=== PATIENT | female | born 1995 | race American Indian/Alaskan Native ===

== ENCOUNTER 2017-12-14 14:20 | Emergency (ER) | payer SELFPAY ==
[2017-12-14 15:15] LABS: Bacteria,Urine 1+ /HPF (Negative); Bilirubin,Urine NEG (Negative); Blood,Urine LG (Negative); Color,Urine Yellow (Yellow); Mucus,Urine 1+ /HPF; Protein,Urine <15 mg/dL mg/dL (Negative)
[2017-12-14 15:17] LABS: HCG Qualitative,Urine Negative (Negative)
[2017-12-14 15:18] LABS: Basophils % (Auto) 0.4 % (0.0-1.8); Eosinophils # (Auto) 0.2 K/mm3 (0.0-0.4); Eosinophils % (Auto) 1.8 % (0.0-4.3); Hematocrit 42.6 % (30.3-42.9); Hemoglobin 14.1 gm/dl (10.1-14.3); Lymphocytes # (Auto) 1.2 K/mm3 (1.2-5.4); Lymphocytes % (Auto) 13.3 % (13.4-35.0); Mean Corpuscular HGB Conc 33 % (30-34); Mean Corpuscular Hemoglobin 30 pg (28-32); Mean Corpuscular Volume 90 fl (79-97); Monocytes # (Auto) 1.1 K/mm3 (0.0-0.8); Monocytes % (Auto) 12.9 % (0.0-7.3); Platelet Count 252 K/mm3 (140-440); Red Blood Count 4.75 M/mm3 (3.65-5.03); Red Cell Distribution Width 13.3 % (13.2-15.2)
[2017-12-14 15:25] LABS: Alanine Aminotransferase 10 units/L (7-56); Albumin 4.2 g/dL (3.9-5); BUN/Creatinine Ratio 15; Blood Urea Nitrogen 12 mg/dL (7-17); Calcium 9.4 mg/dL (8.4-10.2); Hemolysis Index 5
[2017-12-14] MEDS ORDERED: NACL 0.9% 1000 ML 1,000 ML IV ONE (16:54)
[2017-12-14] MEDS ORDERED: ZOFRAN IV ONE ×2 (16:54→19:23)
[2017-12-14] MEDS ORDERED: NORCO 5/325 PO ONE (16:54)
--- NOTE | 2017-12-14 16:56 | Emergency Department Report ---
Chief Complaint: Nausea/Vomiting/Diarrhea Stated Complaint: NAUSEA/VOMITING Time Seen by Provider: 12/14/17 16:47 - HPI History of Present Illness: 22-year-old female presents to the emergency department with a complaint of a 2 to three-day history of right lower quadrant abdominal pain with some nausea and vomiting. She denies any vaginal bleeding, dysuria, vaginal discharge. She has not taken anything for her symptoms prior presentation. She has a history of diabetes. She feels like she cannot "keep my self hydrated." No recent travel or sick contacts at home. - ROS Review of Systems: Positive for nausea, vomiting and abdominal pain Negative for vaginal bleeding or discharge, dysuria, fever - Exam Vital Signs: Vital Signs 12/14/17 14:28 Temperature 98.3 F Pulse Rate 108 H Respiratory 16 Rate Blood Pressure 114/75 O2 Sat by Pulse 100 Oximetry Physical Exam: Heart and lungs sounds are normal to auscultation. Normal bowel sounds. She has reproducible tenderness to palpation to the right lower quadrant of the abdomen but no guarding. MSE screening note: Focused history and physical exam performed. Due to findings the following was ordered: The patient's labs thus far been unremarkable including a normal CBC, CMP, urinalysis and the patient is not . She will have a 2 view x-ray. We will place an IV and she will receive IV fluid, Zofran and something for discomfort. ED Medical Decision Making - Lab Data Result diagrams: 12/14/17 14:55 12/14/17 14:55 ED Disposition for MSE Condition: Stable Referrals: PRIMARY CARE [Primary Care Provider] - 3-5 Days
--- NOTE | 2017-12-14 17:01 | Emergency Department Report ---
ED Abdominal Pain HPI - General Chief Complaint: Nausea/Vomiting/Diarrhea Stated Complaint: NAUSEA/VOMITING Time Seen by Provider: 12/14/17 16:47 Source: patient, family Mode of arrival: Ambulatory Limitations: No Limitations - History of Present Illness Initial Comments: 22-year-old female presents to the emergency department with a complaint of a 2 to three-day history of right lower quadrant abdominal pain with some nausea and vomiting. She denies any vaginal bleeding, dysuria, vaginal discharge. She has not taken anything for her symptoms prior presentation. She has a history of diabetes. She feels like she cannot "keep my self hydrated." No recent travel or sick contacts at home. She will ensure that 85. She says she took a home test was negative. Pain to abdomen is 4/10 and crampy. Pain is intermittent. No medication taken for pain. Unsure of cause. Denies any constipation. Denies any urinary frequency or urgency. Nothing makes pain better and nothing makes it worse. MD Complaint: abdominal pain, other (nausea and vomiting.) Onset/Timin -: days(s) Location: LUQ, RUQ Radiation: none Migration to: no migration Severity: mild Severity scale (0 -10): 4 Quality: cramping Consistency: intermittent Improves With: nothing Worsens With: nothing Context: other (unknown) Associated Symptoms: nausea, vomiting. denies: diarrhea, fever, chills, constipation, dysuria, hematemesis, hematochezia, melena, hematuria, anorexia, syncope Treatments Prior to Arrival: other (none) - Related Data LMP Date: 11/30/17 Previous Rx's Medication Instructions Recorded Last Taken Type Butalb/Acetaminophen/Caffeine 1 cap PO Q6HR PRN #20 cap 02/09/15 Unknown Rx [Fioricet 50-300-40 mg CAP] Famotidine [Pepcid] 20 mg PO BID #10 tablet 04/08/15 Unknown Rx Prednisone [predniSONE 5 mg (6-Day 5 mg PO .TAPER #1 tab.ds.pk 04/08/15 Unknown Rx Pack, 21 Tabs)] Ondansetron [Zofran Odt] 4 mg PO Q6H PRN #12 tab.rapdis 12/14/17 Unknown Rx Butalb/Acetaminophen/Caffeine 1 cap PO Q8HR PRN #15 cap 12/15/17 Unknown Rx [Fioricet 50-300-40 mg CAP] Allergies Allergy/AdvReac Type Severity Reaction Status Date / Time diphenhydramine HCl Allergy Anaphylaxis Verified 12/15/17 16:00 [From Benadryl] ED Review of Systems ROS: Stated complaint: NAUSEA/VOMITING Other details as noted in HPI Constitutional: denies: chills, fever Eyes: denies: eye pain, eye discharge, vision change ENT: denies: throat pain Respiratory: denies: cough, shortness of breath, SOB with exertion, SOB at rest , wheezing Cardiovascular: denies: chest pain, palpitations, edema, syncope Gastrointestinal: abdominal pain, nausea, vomiting. denies: diarrhea, constipation, hematemesis, melena, hematochezia Genitourinary: denies: urgency, dysuria, frequency, hematuria, discharge, abnormal menses Musculoskeletal: denies: back pain, joint swelling, arthralgia, myalgia Skin: denies: rash, lesions Neurological: denies: headache, weakness, paresthesias ED Past Medical Hx - Past Medical History Previous Medical History?: Yes Hx Diabetes: Yes Hx Headaches / Migraines: Yes Hx Asthma: Yes - Surgical History Past Surgical History?: No Additional Surgical History: hernia repair. tonsillectomy - Family History Family history: hypertension - Social History Smoking Status: Current Every Day Smoker Substance Use Type: None Other Social History: Lives with family - Medications Home Medications: Home Medications Medication Instructions Recorded Confirmed Last Taken Type Butalb/Acetaminophen/Caffeine 1 cap PO Q6HR PRN #20 cap 02/09/15 Unknown Rx [Fioricet 50-300-40 mg CAP] Famotidine [Pepcid] 20 mg PO BID #10 tablet 04/08/15 Unknown Rx Prednisone [predniSONE 5 mg (6-Day 5 mg PO .TAPER #1 tab.ds.pk 04/08/15 Unknown Rx Pack, 21 Tabs)] Ondansetron [Zofran Odt] 4 mg PO Q6H PRN #12 tab.rapdis 12/14/17 Unknown Rx Butalb/Acetaminophen/Caffeine 1 cap PO Q8HR PRN #15 cap 12/15/17 Unknown Rx [Fioricet 50-300-40 mg CAP] ED Physical Exam - General Limitations: No Limitations General appearance: alert, in no apparent distress - Head Head exam: Present: atraumatic, normocephalic, normal inspection - Eye Eye exam: Present: normal appearance, PERRL, EOMI Pupils: Present: normal accommodation - ENT ENT exam: Present: normal exam, normal orophraynx, mucous membranes moist, TM's normal bilaterally, normal external ear exam - Neck Neck exam: Present: normal inspection, full ROM, other (no C-spine tenderness). Absent: tenderness, lymphadenopathy - Respiratory Respiratory exam: Present: normal lung sounds bilaterally. Absent: respiratory distress, chest wall tenderness, accessory muscle use - Cardiovascular Cardiovascular Exam: Present: regular rate, normal rhythm, normal heart sounds. Absent: systolic murmur, diastolic murmur - GI/Abdominal GI/Abdominal exam: Present: soft, normal bowel sounds. Absent: distended, tenderness, guarding, rebound, rigid, organomegaly, mass, bruit, pulsatile mass , hernia - Extremities Exam Extremities exam: Present: normal inspection, full ROM, normal capillary refill , other (no clubbing, cyanosis or edema. +2 pulses all extremities and no neurovascular compromise). Absent: tenderness, pedal edema, joint swelling, calf tenderness - Back Exam Back exam: Present: normal inspection, full ROM, other (ambulates without any difficulties). Absent: tenderness, CVA tenderness (R), CVA tenderness (L), muscle spasm, paraspinal tenderness, vertebral tenderness, rash noted - Neurological Exam Neurological exam: Present: alert, oriented X3, normal gait, reflexes normal. Absent: motor sensory deficit - Psychiatric Psychiatric exam: Present: normal affect, normal mood - Skin Skin exam: Present: warm, dry, intact, normal color. Absent: rash ED Course Vital Signs 12/14/17 12/14/17 14:28 20:48 Temperature 98.3 F 98.7 F Pulse Rate 108 H 99 H Respiratory 16 18 Rate Blood Pressure 114/75 Blood Pressure 116/71 [Right] O2 Sat by Pulse 100 100 Oximetry - Reevaluation(s) Reevaluation #1: 12/14/17 18:55 Patient given normal saline 1 L, Zofran 4 mg IV and hydrocodone 5/325 one tablets by mouth for pain and nausea and vomiting which has been relieved. She is still complaining of abdominal pain. Given his nontender to palpate. Reevaluation #2: 12/14/17 20:[address] scan of abdomen and pelvis with IV contrast. She says she cannot wait and she wants to go home and she'll follow-up with her doctor. Patient received morphine 4 mg IV and Zofran 4 mg IV and said her pain is better. Abdominal exam remains the same. See signed AMA form for refusal of [facility] ED Medical Decision Making - Lab Data Result diagrams: 12/14/17 14:55 12/14/17 14:55 Lab Results 12/14/17 12/14/17 12/14/17 Range/Units 14:37 14:48 14:55 WBC 8.8 (4.5-11.0) K/mm3 RBC 4.75 (3.65-5.03) M/mm3 Hgb 14.1 (10.1-14.3) gm/dl Hct 42.6 (30.3-42.9) % MCV 90 (79-97) fl MCH 30 (28-32) pg MCHC 33 (30-34) % RDW 13.3 (13.2-15.2) % Plt Count 252 (140-440) K/mm3 Lymph % (Auto) 13.3 L (13.4-35.0) % [place] % (Auto) 12.9 H (0.0-7.3) % Eos % (Auto) 1.8 (0.0-4.3) % Baso % (Auto) 0.4 (0.0-1.8) % Lymph # 1.2 (1.2-5.4) K/mm3 [place] # 1.1 H (0.0-0.8) K/mm3 Eos # 0.2 (0.0-0.4) K/mm3 Baso # 0.0 (0.0-0.1) K/mm3 Seg Neutrophils % 71.6 H (40.0-70.0) % Seg Neutrophils # 6.3 (1.8-7.7) K/mm3 Sodium (137-145) mmol/L Potassium (3.6-5.0) mmol/L Chloride (98-107) mmol/L Carbon Dioxide (22-30) mmol/L Anion Gap mmol/L BUN (7-17) mg/dL Creatinine (0.7-1.2) mg/dL Estimated GFR ml/min BUN/Creatinine Ratio % Glucose (65-100) mg/dL POC Glucose 85 (70-105) Calcium (8.4-10.2) mg/dL Total Bilirubin (0.1-1.2) mg/dL AST (5-40) units/L ALT (7-56) units/L Alkaline Phosphatase (35-129) units/L Total Protein (6.3-8.2) g/dL Albumin (3.9-5) g/dL Albumin/Globulin Ratio % Urine Color Yellow (Yellow) Urine Turbidity Clear (Clear) Urine pH 5.0 (5.0-7.0) Ur Specific [place] 1.025 (1.003-1.030) Urine Protein <15 mg/dl (Negative) mg/dL Urine Glucose (UA) Neg (Negative) mg/dL Urine Ketones Neg (Negative) mg/dL Urine Blood Lg (Negative) Urine Nitrite Neg (Negative) Urine Bilirubin Neg (Negative) Urine Urobilinogen 4.0 (<2.0) mg/dL Ur Leukocyte Esterase Neg (Negative) Urine WBC (Auto) 2.0 (0.0-6.0) /HPF Urine RBC (Auto) 3.0 (0.0-6.0) /HPF U Epithel Cells (Auto) 10.0 (0-13.0) /HPF Urine Bacteria (Auto) 1+ (Negative) /HPF Urine Mucus 1+ /HPF Urine HCG, Qual Negative (Negative) 12/14/17 Range/Units 14:55 WBC (4.5-11.0) K/mm3 RBC (3.65-5.03) M/mm3 Hgb (10.1-14.3) gm/dl Hct (30.3-42.9) % MCV (79-97) fl MCH (28-32) pg MCHC (30-34) % RDW (13.2-15.2) % Plt Count (140-440) K/mm3 Lymph % (Auto) (13.4-35.0) % [place] % (Auto) (0.0-7.3) % Eos % (Auto) (0.0-4.3) % Baso % (Auto) (0.0-1.8) % Lymph # (1.2-5.4) K/mm3 [place] # (0.0-0.8) K/mm3 Eos # (0.0-0.4) K/mm3 Baso # (0.0-0.1) K/mm3 Seg Neutrophils % (40.0-70.0) % Seg Neutrophils # (1.8-7.7) K/mm3 Sodium 139 (137-145) mmol/L Potassium 4.3 (3.6-5.0) mmol/L Chloride 104.7 (98-107) mmol/L Carbon Dioxide 24 (22-30) mmol/L Anion Gap 15 mmol/L BUN 12 (7-17) mg/dL Creatinine 0.8 (0.7-1.2) mg/dL Estimated GFR > 60 ml/min BUN/Creatinine Ratio 15 % Glucose 90 (65-100) mg/dL POC Glucose (70-105) Calcium 9.4 (8.4-10.2) mg/dL Total Bilirubin 0.20 (0.1-1.2) mg/dL AST 17 (5-40) units/L ALT 10 (7-56) units/L Alkaline Phosphatase 53 (35-129) units/L Total Protein 8.0 (6.3-8.2) g/dL Albumin 4.2 (3.9-5) g/dL Albumin/Globulin Ratio 1.1 % Urine Color (Yellow) Urine Turbidity (Clear) Urine pH (5.0-7.0) Ur Specific [place] (1.003-1.030) Urine Protein (Negative) mg/dL Urine Glucose (UA) (Negative) mg/dL Urine Ketones (Negative) mg/dL Urine Blood (Negative) Urine Nitrite (Negative) Urine Bilirubin (Negative) Urine Urobilinogen (<2.0) mg/dL Ur Leukocyte Esterase (Negative) Urine WBC (Auto) (0.0-6.0) /HPF Urine RBC (Auto) (0.0-6.0) /HPF U Epithel Cells (Auto) (0-13.0) /HPF Urine Bacteria (Auto) (Negative) /HPF Urine Mucus /HPF Urine HCG, Qual (Negative) Patient has large amount of blood in her urine, is negative and she refuses CT scan - Radiology Data Radiology results: report reviewed X-ray of the abdomen shows nonspecific bowel gas pattern with no acute processes - Medical Decision Making ED course this is a 23-year-old Female that presents with abdominal pain, nausea and vomiting. 1- patient was examined by me patient is stable. CBC, CMP, UA and HCG reviewed by jennifer and stable. Xrays of abdomen a obtained and dictated by the radiologist within normal limits. Patient is notified of laboratory results and Xray report with no questions noted by the patient. Patient refused Ct scan of the abdomen and pelvis due to continued abdominal pain. She was counselled and still refused 1- Abdominal pain: Hydrocodone 5/325 mg without relief and still with pain. She was given morphine 4mg iv x2 and now pain better 2-Nausea and vomiting- Zofran 4 mg iv x 2 doses and ns x 1 liter with resolution of nausea and vomiting. Tolerating oral liquid well. -Patient received prescription for zofran at discharge -Patient educated on medication, diagnosis and to follow up with PCP tomorrow or if symptoms worsen such as bladder or bowel stability, chest pain, short of breath, numbness or tingling sensation in extremities, headache, dizziness, visual changes, nausea vomiting, or abdominal pain, return back to emergency room as was possible.. She voiced understanding of discharge instructions - At time time of discharge, the patient does not seem toxic or ill in appearance. No acute signs of distress noted. Patient agrees to discharge treatment plan of care. No further questions noted by the patient. VSS afeb Critical care attestation.: If time is entered above; I have spent that time in minutes in the direct care of this critically ill patient, excluding procedure time. ED Disposition Clinical Impression: Nausea & vomiting Qualifiers: Vomiting type: unspecified Vomiting Intractability: non-intractable Qualified Code(s): R11.2 - Nausea with vomiting, unspecified Abdominal pain Qualifiers: Abdominal location: unspecified location Qualified Code(s): R10.9 - Unspecified abdominal pain Disposition: DC-01 TO HOME OR SELFCARE Is pt being admited?: No Does the pt Need Aspirin: No Condition: Stable Instructions: Acute Nausea and Vomiting (ED), Abdominal Pain (ED) Additional Instructions: Please increase her fluid intake to 2-3 L of water daily. Medication as prescribed for nausea He refused a CT scan a few abdomen today so if you continue to have abdominal pain and nausea and vomiting you can return to the emergency room. Please follow up with the primary care physician follow-up visit nausea vomiting and abdominal pain tomorrow. See referral to [place] [facility]. Call to schedule an appointment for this week Prescriptions: Ondansetron [Zofran Odt] 4 mg PO Q6H PRN #12 tab.rapdis PRN Reason: Nausea And Vomiting Referrals: PRIMARY CARE, [Primary Care Provider] - 12/15/17 [facility] [Provider Group] - 12/15/17 Forms: AMA Form, Work/School Release Form(ED)
--- NOTE | 2017-12-14 17:22 | XRay Report ---
FINAL REPORT EXAM: XR ABDOMEN 2V HISTORY: Abd pain TECHNIQUE: Supine and erect views of the abdomen PRIORS: None. FINDINGS: The bowel gas pattern is nonspecific. No free air is identified. Soft tissues have no evidence for mass shadows or calcifications. The bony structures are intact. IMPRESSION: Nonspecific, nonobstructive bowel gas pattern with no acute process noted.
[2017-12-14] MEDS ORDERED: MORPHINE IM ONE (19:23)
[2017-12-14] MEDS ORDERED: MORPHINE IV ONE (19:29)
[2017-12-14 20:49] VITALS: BP 116/71
== END 2017-12-14 20:50 | disposition home or self-care (01) ==
LOC: ED 14:20
DX: R10.31 Right lower quadrant pain (principal); R11.2 Nausea with vomiting, unspecified; E11.9 Type 2 diabetes mellitus without complications; G43.909 Migraine, unspecified, not intractable, without status migrainosus; F17.200 Nicotine dependence, unspecified, uncomplicated; Z88.8 Allergy status to other drugs, medicaments and biological substances
CPT/HCPCS: 36415; 74019; 80053; 81001; 81025; 82962; 85025; 99284; J2270; J2405; J7030

== ENCOUNTER 2017-12-15 15:47 | Emergency (ER) | payer OTHER ==
[2017-12-15 16:02] VITALS: BP 119/64
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
[2017-12-15] MEDS ORDERED: ZOFRAN ODT PO ONE (18:26)
[2017-12-15] MEDS ORDERED: DELTASONE PO ONE (18:26)
[2017-12-15] MEDS ORDERED: REGLAN IM ONE (18:26)
[2017-12-15] MEDS ORDERED: TORADOL IM ONE (18:26)
== END 2017-12-15 19:54 | disposition home or self-care (01) ==
LOC: ED 15:47
DX: G43.909 Migraine, unspecified, not intractable, without status migrainosus (principal); E11.9 Type 2 diabetes mellitus without complications; F17.200 Nicotine dependence, unspecified, uncomplicated
CPT/HCPCS: 96372; 99282; J1885; J2765; J7512; Q0162